=== PATIENT | female | born 1980 | race Caucasian/White ===

== ENCOUNTER 2018-03-06 13:22 | Emergency (ER) | payer OTHER ==
[~2018-03-06] VITALS: Ht 165.1 cm; Wt 70.8 kg
[2018-03-06 13:23] VITALS: BP 100/67
--- NOTE | 2018-03-06 13:28 | NUR ---
PT TAKEN IN WHEELCHAIR TO BED 8
--- NOTE | 2018-03-06 13:30 | NUR ---
37Y/F BIB DTR C/O BACK PAIN. PT STATES SHE HAS BACK PAIN AND CRAMPING FROM CHEST TO STOMACH SINCE YESTERDAY. PT WENT TO [facility] YESTERDAY AND RECIVED RX FOR PAIN BUT IT GOT WORSE TODAY. PT STATES STOMACH PAIN AND BACK PAIN HURT WITH EXURTION AND SHE CANNOT LAY DOWN. PERIPHERAL PLUSES PRESENT. AAOX4. VSS PMH: MIGRANES ALLERGIES: NONE
[2018-03-06] MEDS ORDERED: NACL 0.9% 1,000 ML IV SCH (13:54)
[2018-03-06] MEDS ORDERED: KETOROLAC 30 MG/ML VIAL IVP ONE (13:55)
[2018-03-06] MEDS ORDERED: MORPHINE SULFATE 4 MG/ML SYR IVP ONE (13:55)
[2018-03-06] MEDS ORDERED: ONDANSETRON 4 MG/2 ML VIAL IVP ONE (13:55)
--- NOTE | 2018-03-06 13:55 | NUR ---
Patient being evaluated by physician at bedside.
[2018-03-06 14:15] LABS: BASOPHILS % (AUTO) 0.6 % (0.0-2.0); EOSINOPHILS # (AUTO) 0.4 K/uL (0-0.4); EOSINOPHILS % (AUTO) 4.9 % (0.0-4.0); HEMATOCRIT 42.2 % (36-48); HEMOGLOBIN 13.9 g/dL (12.0-16.0); LYMPHOCYTES # (AUTO) 1.9 K/uL (2.5-16.5); LYMPHOCYTES % (AUTO) 23.3 % (20.5-51.1); MEAN CORPUSCULAR HEMOGLOBIN 30 pg (27-31); MEAN CORPUSCULAR HGB CONC 33 g/dL (33-37); MEAN CORPUSCULAR VOLUME 90.8 fL (80-94); MONOCYTES # (AUTO) 0.7 K/uL (0.8-1.0); NEUTROPHILS # (AUTO) 5.1 K/uL (1.8-7.7); NEUTROPHILS % (AUTO) 62.2 % (42.2-75.2); PLATELET COUNT (AUTO) 197 K/uL (140-450); RED BLOOD CELL COUNT(AUTO) 4.64 MIL/uL (4.20-5.40); RED CELL DISTRIBUTION WIDTH 13.8 % (11.6-13.7); WHITE BLOOD COUNT (AUTO) 8.3 K/uL (4.8-10.8)
[2018-03-06 14:17] LABS: APPEARANCE,URINE SL CLOUDY (CLEAR); BILIRUBIN,URINE NEGATIVE (NEGATIVE); BLOOD, URINE NEGATIVE (NEGATIVE); COLOR,URINE YELLOW (YELLOW); LEUKOCYTE ESTERASE ,URINE NEGATIVE (NEGATIVE); NITRITE, URINE NEGATIVE (NEGATIVE); UGLUCOSE NEGATIVE (NEGATIVE)
[2018-03-06 14:45] LABS: ALBUMIN 3.7 g/dL (3.4-5.0); ANION GAP 9.9 (8-16); CARBON DIOXIDE 26.8 mmol/L (21-32); CREATININE 0.6 mg/dL (0.6-1.3); POTASSIUM 3.7 mmol/L (3.5-5.1); TOTAL BILIRUBIN 0.7 mg/dL (0.0-1.0)
[2018-03-06 16:08] VITALS: BP 110/65
--- NOTE | 2018-03-06 16:10 | NUR ---
Patient discharged with v/s stable. Written and verbal after care instructions given and explained. Patient alert, oriented and verbalized understanding of instructions. Ambulatory with steady gait. All questions addressed prior to discharge. ID band removed. Patient advised to follow up with PMD. Rx of TRAMADOL, ROBAXIN, MOTRIN given. Patient educated on indication of medication including possible reaction and side effects. Opportunity to ask questions provided and answered.
== END 2018-03-06 16:10 | disposition home or self-care (01) ==
LOC: MED 13:22
DX: M54.9 Dorsalgia, unspecified (principal); J45.909 Unspecified asthma, uncomplicated
CPT/HCPCS: 36415; 74176; 80053; 81003; 82150; 83690; 84703; 85025; 96374; 96375; 99285; J1885; J2270; J2405

== ENCOUNTER 2018-06-15 21:57 | Emergency (ER) | payer OTHER ==
[~2018-06-15] VITALS: Ht 157.5 cm; Wt 81.6 kg
[2018-06-15 22:01] VITALS: BP 124/75
--- NOTE | 2018-06-15 22:01 | NUR ---
TO BED # 2 AMBULATORY, REPORT GIVEN TO JASMIN KENYON
--- NOTE | 2018-06-15 22:08 | NUR ---
Caridad sevilla in [facility] - 06/15/18 at 2208 by ZHOU PT TAKEN TO BED 2
--- NOTE | 2018-06-15 22:11 | NUR ---
37/F CAME IN WITH , C/O 04/23 "HARD" LLQ/SUPRAPUBIC PAIN, RADIATING TO L LOWER BACK, X7 HRS. PT DENIES FEVER, CP, N/V/D, OR DYSURIA OR VAGINAL BLEEDING. LMP 02/17/18, REPORTS BEING 3MONTHS , A1. LUNG SOUNDS CLEAR BL. BS ACTIVE X4, ABD SOFT ROUND TENDER TO L SIDE OF ABD AND L LOWER BACK. AOX4, AMBULATORY, RR EVEN AND UNLABORED. REPORTS TAKING TYLENOL 2 HRS AGO WITH NO RELIEF. HX ASTHMA, MIGRAINES
[2018-06-15] MEDS ORDERED: ACETAMINOPHEN EXTRA STRENGTH 500 MG TAB PO ONE (22:35)
--- NOTE | 2018-06-15 23:00 | NUR ---
OB RN AT BEDSIDE TO READ HEART TONE, UNABLE TO FIND AT THIS TIME. PT TOLERATED WELL. ER MD MADE AWARE.
[2018-06-16 00:04] LABS: BASOPHILS % (AUTO) 0.5 % (0.0-2.0); EOSINOPHILS # (AUTO) 0.2 K/uL (0-0.4); EOSINOPHILS % (AUTO) 2.9 % (0.0-4.0); HEMATOCRIT 39.9 % (36-48); HEMOGLOBIN 13.4 g/dL (12.0-16.0); LYMPHOCYTES # (AUTO) 2.7 K/uL (2.5-16.5); LYMPHOCYTES % (AUTO) 35.7 % (20.5-51.1); MEAN CORPUSCULAR HEMOGLOBIN 30 pg (27-31); MEAN CORPUSCULAR HGB CONC 34 g/dL (33-37); MEAN CORPUSCULAR VOLUME 90.3 fL (80-94); MONOCYTES # (AUTO) 0.7 K/uL (0.8-1.0); NEUTROPHILS # (AUTO) 3.9 K/uL (1.8-7.7); NEUTROPHILS % (AUTO) 51.9 % (42.2-75.2); PLATELET COUNT (AUTO) 162 K/uL (140-450); RED BLOOD CELL COUNT(AUTO) 4.42 MIL/uL (4.20-5.40); WHITE BLOOD COUNT (AUTO) 7.5 K/uL (4.8-10.8)
--- NOTE | 2018-06-16 00:38 | NUR ---
PT RETURN FROM ULTRASOUND
--- NOTE | 2018-06-16 01:17 | NUR ---
PT RESTING IN BED. PT AT BEDSIDE. PT REPORTS 7/10 PAIN AT THIS TIME. VSS, RR EVEN AND UNLABORED. ALL NEEDS MET.
[2018-06-16 02:11] VITALS: BP 97/50
== END 2018-06-16 02:11 | disposition home or self-care (01) ==
LOC: MED 21:57
DX: O20.0 Threatened abortion (principal); J45.909 Unspecified asthma, uncomplicated; G43.909 Migraine, unspecified, not intractable, without status migrainosus; Z3A.13 13 weeks gestation of pregnancy
CPT/HCPCS: 36415; 76801; 81002; 81025; 84702; 85025; 99284

== ENCOUNTER 2018-07-24 15:29 | Emergency (ER) | payer OTHER ==
[~2018-07-24] VITALS: Ht 157.5 cm; Wt 69.9 kg
[2018-07-24 16:07] VITALS: BP 142/56
--- NOTE | 2018-07-24 16:20 | NUR ---
PT AMBULATED TO BED 12. S/O OTHER AT BEDSIDE.
--- NOTE | 2018-07-24 16:25 | NUR ---
PT C/O ABD PAIN AND HEADACHE X2 DAYS; 10/10 PAIN. PT STATES TO BE 18 WKS . DENIES N/V/D; SKIN IS PINK/WARM/DRY; AAOX4 WITH EVEN AND STEADY GAIT; LUNGS CLEAR BL; HR EVEN AND REGULAR; PT DENIES ANY FEVER, CP, SOB, OR COUGH AT THIS TIME; VSS; PATIENT POSITIONED FOR COMFORT; HOB ELEVATED; BEDRAILS UP X2; BED DOWN. ER MD MADE AWARE OF PT STATUS.
--- NOTE | 2018-07-24 17:30 | NUR ---
NO NEEDS STATED AT THIS TIME.
[2018-07-24 18:48] LABS: APPEARANCE,URINE CLEAR (CLEAR); BILIRUBIN,URINE NEGATIVE (NEGATIVE); BLOOD, URINE NEGATIVE (NEGATIVE); COLOR,URINE YELLOW (YELLOW); LEUKOCYTE ESTERASE ,URINE NEGATIVE (NEGATIVE); NITRITE, URINE NEGATIVE (NEGATIVE); UGLUCOSE NEGATIVE (NEGATIVE)
[2018-07-24] MEDS ORDERED: ACETAMINOPHEN 325 MG TAB PO ONE (18:55)
[2018-07-24 19:11] VITALS: BP 135/62
== END 2018-07-24 19:11 | disposition home or self-care (01) ==
LOC: MED 15:29
DX: O26.892 Other specified pregnancy related conditions, second trimester (principal); R51 Headache; R10.30 Lower abdominal pain, unspecified; J45.909 Unspecified asthma, uncomplicated; G43.909 Migraine, unspecified, not intractable, without status migrainosus; Z88.0 Allergy status to penicillin
CPT/HCPCS: 76815; 81003; 81025; 87086; 99284; Q0092

== ENCOUNTER 2018-08-31 19:12 | Inpatient (IN) | payer OTHER ==
[~2018-08-31] VITALS: Ht 157.5 cm; Wt 78.0 kg
[2018-08-31 19:40] VITALS: BP 130/71
--- NOTE | 2018-08-31 19:45 | NUR ---
PT TRIAGED, GIVEN URINE CUP AND SENT TO ER LOBBY. VSS.
[2018-08-31] MEDS ORDERED: PREN-380 PO (21:46)
[2018-08-31] MEDS: TERBUTALINE 1 MG/ML VIAL SUBQ SCH ×2 (22:26→23:00)
[2018-08-31] MEDS ORDERED: TERBUTALINE 1 MG/ML VIAL SUBQ ONE (22:30)
[2018-08-31 22:59] LABS: APPEARANCE,URINE CLEAR (CLEAR); BILIRUBIN,URINE NEGATIVE (NEGATIVE); BLOOD, URINE NEGATIVE (NEGATIVE); COLOR,URINE YELLOW (YELLOW); LEUKOCYTE ESTERASE ,URINE NEGATIVE (NEGATIVE); NITRITE, URINE NEGATIVE (NEGATIVE); PH,URINE 6.5 (5.0-9.0); UGLUCOSE NEGATIVE (NEGATIVE)
[2018-08-31 23:58] VITALS: BP 110/56
--- NOTE | 2018-09-01 08:23 | NUR ---
PATIENT HAS BEEN SCREENED AND CATEGORIZED LOW NUTRITION RISK. PATIENT WILL BE SEEN WITHIN 7 DAYS OF ADMISSION. 09/07/[address]
[2018-09-01] MEDS ORDERED: LACTATED RINGERS 1,000 ML IV SCH (08:25)
== END 2018-09-01 14:20 | disposition home or self-care (01) | DRG 566 ==
LOC: MED 19:12 → MLD 20:45
PROVIDERS: ADMIT Obstetrics & Gynecology; ATTEND Obstetrics & Gynecology
DX: O26.892 Other specified pregnancy related conditions, second trimester (principal); M25.50 Pain in unspecified joint; M54.9 Dorsalgia, unspecified; Z3A.26 26 weeks gestation of pregnancy
CPT/HCPCS: 36415; 76805; 81003; 85379; 99281; J3105; J7120; Q0092

== ENCOUNTER 2018-12-05 00:13 | Observation (INO) | payer OTHER ==
[~2018-12-05] VITALS: Ht 157.5 cm; Wt 83.5 kg
[~2018-12-05 00:13] MED LIST: PREN-380 PO
== END 2018-12-05 19:04 | disposition home or self-care (01) ==
LOC: MLD 16:06
PROVIDERS: ADMIT Obstetrics & Gynecology; ATTEND Obstetrics & Gynecology
DX: O26.893 Other specified pregnancy related conditions, third trimester (principal); R10.9 Unspecified abdominal pain; Z3A.38 38 weeks gestation of pregnancy
CPT/HCPCS: 76805; G0378; Q0092

== ENCOUNTER 2018-12-12 06:36 | Inpatient (IN) | payer OTHER ==
[~2018-12-12] VITALS: Ht 157.5 cm; Wt 82.6 kg
[2018-12-12] MEDS ORDERED: LACTATED RINGERS 1,000 ML IV SCH (07:07)
[2018-12-12] MEDS ORDERED: CITRIC ACID/SODIUM CITRATE 30 ML UDC PO SCH (07:10)
--- NOTE | 2018-12-12 08:15 | NUR ---
PATIENT HAS BEEN SCREENED AND CATEGORIZED LOW NUTRITION RISK. PATIENT WILL BE SEEN WITHIN 7 DAYS OF ADMISSION. 12/18/[address]
[2018-12-12] MEDS ORDERED: CLINDAMYCIN 900 MG in DEXTROSE 5% 100 ML IV SCH (08:40)
[2018-12-12 08:43] LABS: BASOPHILS % (AUTO) 0.5 % (0.0-2.0); EOSINOPHILS # (AUTO) 0.1 K/uL (0-0.4); EOSINOPHILS % (AUTO) 1.7 % (0.0-4.0); HEMATOCRIT 34.3 % (36-48); LYMPHOCYTES # (AUTO) 1.9 K/uL (2.5-16.5); LYMPHOCYTES % (AUTO) 30.2 % (20.5-51.1); MEAN CORPUSCULAR HEMOGLOBIN 26 pg (27-31); MEAN CORPUSCULAR HGB CONC 32 g/dL (33-37); MEAN CORPUSCULAR VOLUME 80.6 fL (80-94); MONOCYTES # (AUTO) 0.7 K/uL (0.8-1.0); MONOCYTES % (AUTO) 10.4 % (1.7-9.3); NEUTROPHILS # (AUTO) 3.6 K/uL (1.8-7.7); NEUTROPHILS % (AUTO) 57.2 % (42.2-75.2); PLATELET COUNT (AUTO) 171 K/uL (140-450); RED BLOOD CELL COUNT(AUTO) 4.26 MIL/uL (4.20-5.40); WHITE BLOOD COUNT (AUTO) 6.3 K/uL (4.8-10.8)
[2018-12-12 08:50] LABS: BILIRUBIN,URINE NEGATIVE (NEGATIVE); BLOOD, URINE NEGATIVE (NEGATIVE); COLOR,URINE YELLOW (YELLOW); LEUKOCYTE ESTERASE ,URINE NEGATIVE (NEGATIVE); NITRITE, URINE NEGATIVE (NEGATIVE); UGLUCOSE NEGATIVE (NEGATIVE)
[2018-12-12 08:52] LABS: APPEARANCE,URINE CLEAR (CLEAR)
[2018-12-12 08:55] VITALS: BP 95/55
[2018-12-12] MEDS ORDERED: CITRIC ACID/SODIUM CITRATE 30 ML UDC ONE (09:49)
[2018-12-12] MEDS ORDERED: PHENYLEPHRINE 10 MG/ML VIAL ONE (10:05)
[2018-12-12] MEDS ORDERED: ePHEDrine 50 MG/ML VIAL ONE (10:05)
[2018-12-12] MEDS ORDERED: MORPHINE PRES FREE 2 MG/2 ML 2 mL UD SYRINGE ONE (10:19)
[2018-12-12] MEDS ORDERED: fentaNYL 0.05 MG/ML VIAL ONE (10:19)
[2018-12-12] MEDS ORDERED: NALOXONE 0.4 MG/ML VIAL IVP PRN ×3 (10:45)
[2018-12-12] MEDS ORDERED: ONDANSETRON 4 MG/2 ML VIAL IVP PRN ×2 (10:45)
[2018-12-12] MEDS ORDERED: NALBUPHINE 10 MG/ML AMP IVP PRN (10:45)
[2018-12-12] MEDS ORDERED: diphenhydrAMINE 50 MG/ML VIAL IVP PRN (10:45)
[2018-12-12] MEDS ORDERED: KETOROLAC 30 MG/ML VIAL IVP PRN (10:45)
[2018-12-12] MEDS ORDERED: OXYTOCIN 20 UNITS/LR PREMIX 1,000 ML IV ONE (13:51)
[2018-12-12] MEDS ORDERED: ONDANSETRON 4 MG/2 ML VIAL ONE (14:24)
[2018-12-12] MEDS ORDERED: HYDROmorphone 1 MG/ML AMP IVP PRN (18:25)
[2018-12-12] MEDS ORDERED: OXYTOCIN 20 UNITS in LACTATED RINGERS 1,000 ML IV SCH ×2 (18:25→18:46)
[2018-12-12] MEDS ORDERED: MEASLES, MUMPS, AND RUBELLA 1 VIAL SQVAC PRN (18:25)
[2018-12-12] MEDS: LEVOFLOXACIN 750 MG/D5W PREMIX 150 ML IV SCH (19:33)
[2018-12-13] MEDS ORDERED: OXYTOCIN 20 UNITS in LACTATED RINGERS 1,000 ML IV SCH (10:30)
[2018-12-13 10:52] LABS: BASOPHILS % (AUTO) 0.3 % (0.0-2.0); EOSINOPHILS % (AUTO) 0.3 % (0.0-4.0); HEMOGLOBIN 7.5 g/dL (12.0-16.0); LYMPHOCYTES # (AUTO) 1.3 K/uL (2.5-16.5); LYMPHOCYTES % (AUTO) 10.3 % (20.5-51.1); MEAN CORPUSCULAR HEMOGLOBIN 26 pg (27-31); MEAN CORPUSCULAR HGB CONC 33 g/dL (33-37); MEAN CORPUSCULAR VOLUME 80.4 fL (80-94); MONOCYTES # (AUTO) 1.2 K/uL (0.8-1.0); MONOCYTES % (AUTO) 10.1 % (1.7-9.3); NEUTROPHILS # (AUTO) 9.8 K/uL (1.8-7.7); PLATELET COUNT (AUTO) 140 K/uL (140-450); RED BLOOD CELL COUNT(AUTO) 2.86 MIL/uL (4.20-5.40); RED CELL DISTRIBUTION WIDTH 16.1 % (11.6-13.7); WHITE BLOOD COUNT (AUTO) 12.4 K/uL (4.8-10.8)
[2018-12-13] MEDS ORDERED: LACTATED RINGERS 1,000 ML IV SCH ×2 (11:00→12:30)
[2018-12-13] MEDS: KETOROLAC 30 MG/ML VIAL IVP PRN ×2 (14:31→21:08)
[2018-12-13] MEDS: LEVOFLOXACIN 750 MG/D5W PREMIX 150 ML IV SCH (18:40)
[2018-12-14] MEDS: KETOROLAC 30 MG/ML VIAL IVP PRN (06:05)
[2018-12-14] MEDS ORDERED: SODIUM PHOSPHATE 118 ML ENEM RC PRN (08:00)
[2018-12-14] MEDS: BISACODYL 5 MG TABEC PO SCH (09:48)
[2018-12-14] MEDS: DOCUSATE SODIUM 100 MG GELCAP PO PRN (09:48)
[2018-12-14] MEDS: IBUPROFEN 600 MG TAB PO PRN ×2 (09:48→15:51)
[2018-12-14] MEDS: SIMETHICONE 80 MG TAB.CHEW PO SCH ×2 (09:49→12:27)
[2018-12-15] MEDS: IBUPROFEN 600 MG TAB PO PRN ×2 (05:23→16:00)
[2018-12-15] MEDS: DOCUSATE SODIUM 100 MG GELCAP PO PRN (09:07)
[2018-12-15] MEDS: BISACODYL 5 MG TABEC PO SCH (09:07)
[2018-12-15] MEDS: SIMETHICONE 80 MG TAB.CHEW PO SCH (16:01)
[2018-12-15] MEDS: ACETAMINOPHEN 325 MG TAB PO PRN (19:23)
[2018-12-16] MEDS: IBUPROFEN 600 MG TAB PO PRN (04:02)
[2018-12-16 08:36] LABS: BASOPHILS % (AUTO) 0.6 % (0.0-2.0); EOSINOPHILS # (AUTO) 0.4 K/uL (0-0.4); EOSINOPHILS % (AUTO) 6.7 % (0.0-4.0); HEMATOCRIT 22.3 % (36-48); HEMOGLOBIN 7.2 g/dL (12.0-16.0); LYMPHOCYTES # (AUTO) 1.8 K/uL (2.5-16.5); LYMPHOCYTES % (AUTO) 27.6 % (20.5-51.1); MEAN CORPUSCULAR HEMOGLOBIN 26 pg (27-31); MEAN CORPUSCULAR HGB CONC 32 g/dL (33-37); MEAN CORPUSCULAR VOLUME 81.1 fL (80-94); MONOCYTES # (AUTO) 0.5 K/uL (0.8-1.0); MONOCYTES % (AUTO) 8.3 % (1.7-9.3); NEUTROPHILS # (AUTO) 3.7 K/uL (1.8-7.7); NEUTROPHILS % (AUTO) 56.8 % (42.2-75.2); PLATELET COUNT (AUTO) 189 K/uL (140-450); RED BLOOD CELL COUNT(AUTO) 2.75 MIL/uL (4.20-5.40); RED CELL DISTRIBUTION WIDTH 17.2 % (11.6-13.7); WHITE BLOOD COUNT (AUTO) 6.6 K/uL (4.8-10.8)
[2018-12-16] MEDS: BISACODYL 5 MG TABEC PO SCH (09:13)
[2018-12-16] MEDS: SIMETHICONE 80 MG TAB.CHEW PO SCH ×2 (09:13→13:33)
[2018-12-16] MEDS: DOCUSATE SODIUM 100 MG GELCAP PO PRN (09:13)
[2018-12-16] MEDS: ACETAMINOPHEN 325 MG TAB PO PRN (09:17)
[2018-12-16] MEDS ORDERED: FERR325E14 PO (10:45)
[2018-12-16] MEDS ORDERED: IBUP-1842 PO (10:46)
== END 2018-12-16 16:20 | disposition home or self-care (01) | DRG 540 ==
LOC: MLD 06:36 → MFCC 14:50
PROVIDERS: ADMIT Obstetrics & Gynecology; ATTEND Obstetrics & Gynecology
PROC: 3E0234Z Introduction of Serum, Toxoid and Vaccine into Muscle, Percutaneous Approach (ICD-10-PCS; 2018-12-12)
PROC: 0UB70ZZ Excision of Bilateral Fallopian Tubes, Open Approach (ICD-10-PCS; 2018-12-12)
PROC: 10D00Z1 Extraction of Products of Conception, Low, Open Approach (ICD-10-PCS; principal; 2018-12-12 10:00)
DX: O34.211 Maternal care for low transverse scar from previous cesarean delivery (principal); D25.9 Leiomyoma of uterus, unspecified; N73.6 Female pelvic peritoneal adhesions (postinfective); O99.89 Other specified diseases and conditions complicating pregnancy, childbirth and the puerperium; O99.824 Streptococcus B carrier state complicating childbirth; O34.13 Maternal care for benign tumor of corpus uteri, third trimester; O36.63X0 Maternal care for excessive fetal growth, third trimester, not applicable or unspecified; Z30.2 Encounter for sterilization; Z37.0 Single live birth; Z3A.39 39 weeks gestation of pregnancy; Z23 Encounter for immunization
CPT/HCPCS: 36415; 51702; 81003; 85025; 86592; 86886; 86900; 86901; 87081; 87086; 88302; 90715; J1885; J1956; J2270; J2370; J2405; J2590; J3010; J3490; J7060; J7120

== ENCOUNTER 2019-03-29 22:00 | Emergency (ER) | payer OTHER ==
[~2019-03-29] VITALS: Ht 160 cm; Wt 78.9 kg
[~2019-03-29 22:00] MED LIST changes: +FERR325E14 PO; +IBUP-1842 PO
[2019-03-29 22:05] VITALS: BP 111/61
[2019-03-29] MEDS ORDERED: KETOROLAC 60 MG/2 ML VIAL IM ONE (22:15)
[2019-03-29 22:49] VITALS: BP 111/61
== END 2019-03-29 22:49 | disposition home or self-care (01) ==
LOC: MED 22:00
DX: M54.5 Low back pain (principal); J45.909 Unspecified asthma, uncomplicated; Z98.890 Other specified postprocedural states; Z79.1 Long term (current) use of non-steroidal anti-inflammatories (NSAID); Z79.899 Other long term (current) drug therapy; Z88.0 Allergy status to penicillin
CPT/HCPCS: 81002; 81025; 96372; 99283; J1885

== ENCOUNTER 2020-04-12 19:46 | Emergency (ER) | payer OTHER ==
[~2020-04-12] VITALS: Ht 152.4 cm; Wt 72.3 kg
[2020-04-12 20:00] VITALS: BP 117/75
--- NOTE | 2020-04-12 20:20 | NUR ---
PT BIB SELF FOR C/O LUQ ABD PAIN X 3 MONTHS. PT STATES PAIN IS AGGRIVATED BY EATING, AND 10/10 WHEN IT COMES. PT ADMITS TO NAUSEA. PT ABD SOFT, FLAT AND TENDER UPON PALPATION ON LEFT SIDE. ACTIVE BOWEL SOUNDS IN ALL QUADRANTS. PT RESTING IN BED, LOCKED AND IN LOWEST POSITION, HOB ELEVATED, SIDE RAIL X1. AX: PCN
[2020-04-12] MEDS ORDERED: ONDANSETRON 4 MG ODT PO ONE (20:25)
--- NOTE | 2020-04-12 20:35 | NUR ---
pt taken to CT via w/c
--- NOTE | 2020-04-12 20:50 | NUR ---
PT RETURN FROM CT
[2020-04-12] MEDS ORDERED: LACTULOSE 20 GM/30 ML UDC PO ONE (21:05)
--- NOTE | 2020-04-12 22:15 | NUR ---
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
[2020-04-12] MEDS ORDERED: MAGNESIUM CITRATE 300 ML BTL PO ONE (22:20)
--- NOTE | 2020-04-12 23:14 | NUR ---
PER ERMD ORDER - ADMINISTERED SOAP SUDS ENEMA, PROCEDURE WELL TOLERATED BY PATIENT.
[2020-04-12] MEDS ORDERED: ACETAMINOPHEN EXTRA STRENGTH 500 MG TAB PO ONE (23:40)
[2020-04-12 23:45] VITALS: BP 121/79
--- NOTE | 2020-04-12 23:45 | NUR ---
Patient discharged with v/s stable. Written and verbal after care instructions given and explained. Patient alert, oriented and verbalized understanding of instructions. Ambulatory with steady gait. All questions addressed prior to discharge. ID band removed. Patient advised to follow up with PMD. Rx of LACTULOSE given. Patient educated on indication of medication including possible reaction and side effects. Opportunity to ask questions provided and answered.
== END 2020-04-12 23:45 | disposition home or self-care (01) ==
LOC: MED 19:46
DX: K59.00 Constipation, unspecified (principal); J45.909 Unspecified asthma, uncomplicated; Z88.0 Allergy status to penicillin; Z90.49 Acquired absence of other specified parts of digestive tract; Z79.899 Other long term (current) drug therapy
CPT/HCPCS: 74176; 81002; 81025; 99284; Q0162

== ENCOUNTER 2022-12-28 14:16 | Emergency (ER) | payer OTHER ==
[~2022-12-28] VITALS: Ht 157.5 cm; Wt 72.6 kg
[2022-12-28 14:22] VITALS: BP 121/74
--- NOTE | 2022-12-28 14:27 | NUR ---
PT AMBULATORY TO BED 03
[2022-12-28] MEDS ORDERED: KETOROLAC 60 MG/2 ML VIAL IM ONE (14:45)
--- NOTE | 2022-12-28 15:15 | NUR ---
First contact with pt. Pt bibs for L leg pain x 2 days. Pt denies trauma, states she woke up one morning with pain in Left knee and some in l ankle. Knee is tender to touch. Pt amble to ambulate without assistance. Pt is a/o x 4, vss, no ss of acute dsitress, breathing equal and unlabored, speech clear.
[2022-12-28] MEDS ORDERED: SULF-59 PO ×2 (15:54→16:01)
[2022-12-28] MEDS ORDERED: IBUP-2213 PO ×2 (15:54→16:01)
--- NOTE | 2022-12-28 16:28 | NUR ---
Patient discharged with v/s stable. Written and verbal after care instructions given and explained. Patient alert, oriented and verbalized understanding of instructions. Ambulatory with steady gait. All questions addressed prior to discharge. ID band removed. Patient advised to follow up with PMD. Pt aware of px and location for hand picker. Patient educated on indication of medication including possible reaction and side effects. Opportunity to ask questions provided and answered.
[2022-12-28 16:29] VITALS: BP 121/74
== END 2022-12-28 16:28 | disposition home or self-care (01) ==
LOC: MED 14:16
DX: L03.116 Cellulitis of left lower limb (principal); J45.909 Unspecified asthma, uncomplicated; Z88.0 Allergy status to penicillin; Z79.899 Other long term (current) drug therapy; Z98.890 Other specified postprocedural states
CPT/HCPCS: 96372; 99283; J1885

== ENCOUNTER 2023-08-26 15:17 | Emergency (ER) | payer OTHER ==
[~2023-08-26] VITALS: Ht 154.9 cm; Wt 70.3 kg
[~2023-08-26 15:17] MED LIST changes: +IBUP-2213 PO; +SULF-59 PO
[2023-08-26 15:19] VITALS: BP 118/56; PULSE 88; RESP 19; TEMP 97.8; O2SAT 99
[2023-08-26] MEDS ORDERED: IBUP-2213 PO (16:12)
[2023-08-26] MEDS ORDERED: ACET-8905 PO (16:12)
[2023-08-26] MEDS: KETOROLAC 30 MG/ML VIAL IM ONE (16:28)
== END 2023-08-26 16:37 | disposition home or self-care (01) ==
LOC: MED 15:17
DX: M25.562 Pain in left knee (principal); J45.909 Unspecified asthma, uncomplicated; Z88.0 Allergy status to penicillin; Z79.899 Other long term (current) drug therapy
CPT/HCPCS: 29505; 73562; 96372; 99283; J1885